=== PATIENT | female | born 1985 | race Caucasian/White ===

== ENCOUNTER 2021-09-12 09:19 | Emergency (ER) | payer MEDICAID, SELFPAY ==
[2021-09-12 09:32] VITALS: BP 114/78; PULSE 73; RESP 16; TEMP 36.3; O2SAT 97; BMI 28.3
--- NOTE | 2021-09-12 09:58 | ED_ITS ---
HPI - Nausea/Vomiting/Diarrhea General: Chief complaint: Abdominal Pain Stated complaint: abdominal pain / vomiting Time Seen by Provider: 09/12/21 09:26 Source: patient Mode of arrival: ambulatory Limitations: no limitations History of Present Illness: Patient is a 36-year-old female who presents to ED today along with her sister who is also being seen for identical symptoms. They are both being seen for nausea, vomiting, diarrhea, abdominal cramping. They state several members of their household have recently been ill with similar symptoms. She states illness lasted anywhere from 2 to 7 days. No fevers. She is not having any urinary complaints. No dizziness, lightheadedness, muscle fatigue/weakness/cramps. Patient denies hematemesis, hematochezia or melena. MD elicited complaint: nausea, vomiting, diarrhea and abdominal pain Onset (ago): day(s) Description of vomiting: watery Description of diarrhea: watery Associated nausea: Yes Associated abdominal pain: Yes Location of pain: Diffuse Pain consistency: intermittent Quality: cramping Exacerbating factors: eating Relieving factors: none Associated symtoms: Reports nausea; Denies chest pain, dizziness, dysuria, fatigue, headache(s) or malaise Review of Systems Const: Denies: fever(s), chills, body aches, fatigue or malaise Card: Denies: chest pain Resp: Denies: dyspnea GI: Reports: abdominal pain, nausea, vomiting, diarrhea and GI cramping; Denies: hematemesis, coffee ground emesis, pain on defecation, hematochezia, melena or white/light colored stool : Denies: flank pain, dysuria, hematuria or pelvic pain Musc: Denies: neck pain, back pain, extremity pain or joint pain Skin/Breast: Denies: rash Neuro: Denies: headache(s) or dizziness Physical Exam Const: COMMON NORMALS: no acute distress, patient oriented x3, no limitations and alert NUTRITIONAL APPEARANCE: overweight ORIENTATION/CONSCIOUSNESS: Yes awake, Yes oriented to person, Yes oriented to place and Yes oriented to time HENMT: COMMON NORMALS: normocephalic and atraumatic HEAD & SCALP: normocephalic and atraumatic Resp: COMMON NORMALS: normal respiratory effort and clear to auscultation bilaterally AUSCULTATION: clear to auscultation bilaterally Cardio: COMMON NORMALS: regular rate and regular rhythm RATE: regular rate RHYTHM: regular rhythm GI: COMMON NORMALS: Normal to inspection, nondistended, normoactive bowel sounds present, Soft to palpation, No hepatosplenomegaly present and no masses INSPECTION: Yes normal to inspection PALPATION: Yes Soft to palpation, Yes Tenderness to palpation present (GI) (upper abdomen/epigastric; non surgical exam), No Guarding due to palpation present (GI), No Rigid due to palpation and Yes No hepatosplenomegaly present : COMMON NORMALS: Yes no CVA tenderness BLADDER/KIDNEY EXAM: Yes no CVA tenderness Back/Pelvis: COMMON NORMALS: no CVA tenderness Extremity: COMMON NORMALS: normal to inspection GENERAL: Yes normal exam except as noted Neuro: SHANTEL COMA SCALE: document GCS findings [place] coma scale eye opening: Spontaneous [place] coma scale verbal response: Orientated [place] coma scale motor response: Obey commands Shantel coma scale total score: 15 COMMON NORMALS: patient oriented x3, moves all extremities, no focal motor deficits and no sensory deficits noted SENSORIUM/ORIENTATION: Yes alert, Yes oriented to person, Yes oriented to place and Yes oriented to time Skin: COMMON NORMALS: no rashes or lesions noted GENERAL SKIN EXAM: no rashes or lesions noted Course Vital Signs: Vital signs: Vital Signs Temperature 97.9 F 09/12/21 10:53 Pulse Rate 62 09/12/21 10:53 Respiratory Rate 16 09/12/21 10:53 Blood Pressure 124/81 09/12/21 10:53 Pulse Oximetry 98 09/12/21 10:53 MDM - Nausea/Vomiting/Diarrhea Medical Decision Making Patient clinically appears in no acute distress. Her vital signs are stable. Her blood work is unremarkable. She has not had any episodes of vomiting or diarrhea while here. As documented in HPI, her sister as well as several other members of her household have been sick with identical illness. Discussed how the vast majority of these are self-limited. Discussed rest and hydration at home. Will provide prescription for Zofran to help with her nausea. Lab Data : 09/12/21 10:05 09/12/21 10:05 Laboratory Results WBC 12.3 10^3/uL (4.0-10.0) H 09/12/21 10:05 RBC 5.05 10^6/uL (4.1-5.3) 09/12/21 10:05 Hgb 15.8 g/dL (11.5-15.3) H 09/12/21 10:05 Hct 46.7 % (37.0-47.0) 09/12/21 10:05 MCV 92.5 fl (81-99) 09/12/21 10:05 MCH 31.3 pg (28.0-34.0) 09/12/21 10:05 MCHC 33.8 g/dL (30.0-36.0) 09/12/21 10:05 RDW 12.1 % (12.1-15.1) 09/12/21 10:05 Plt Count 234 10^3/cmm (130-400) 09/12/21 10:05 MPV 10.5 fL (7.4-10.4) H 09/12/21 10:05 Neut % (Auto) 78.2 % 09/12/21 10:05 Lymph % (Auto) 13.0 % 09/12/21 10:05 [place] % (Auto) 7.5 % 09/12/21 10:05 Eos % (Auto) 0.4 % 09/12/21 10:05 Baso % (Auto) 0.7 % 09/12/21 10:05 Neut # (Auto) 9.58 10^3/uL (1.8-7.7) H 09/12/21 10:05 Lymph # (Auto) 1.6 10^3/uL (0.8-4.8) 09/12/21 10:05 [place] # (Auto) 0.9 10^3/uL (0.2-0.9) 09/12/21 10:05 Eos # (Auto) 0.1 10^3/uL (0.0-0.8) 09/12/21 10:05 Baso # (Auto) 0.1 10^3/uL (0.0-0.1) 09/12/21 10:05 Nucleated RBC % (auto) 0 % 09/12/21 10:05 Nucleated RBCs # 0.0 /100WBC 09/12/21 10:05 Sodium 137 mmol/L (136-145) 09/12/21 10:05 Potassium 3.5 mmol/L (3.5-5.1) 09/12/21 10:05 Chloride 99 mmol/L (98-107) 09/12/21 10:05 Carbon Dioxide 25 mmol/L (22-29) 09/12/21 10:05 Anion Gap 16.5 (5-19) 09/12/21 10:05 BUN 16 mg/dL (6-20) 09/12/21 10:05 Creatinine 0.6 mg/dL (0.5-0.9) 09/12/21 10:05 GFR Calculation 114.4 mL/min (90-130) 09/12/21 10:05 Glucose 97 mg/dL (65-115) 09/12/21 10:05 Calculated Osmolality 285 mOsm/kg (285-295) 09/12/21 10:05 Calcium 9.8 mg/dL (8.5-10.5) 09/12/21 10:05 Total Bilirubin 1.0 mg/dL (0.15-1.2) 09/12/21 10:05 AST 15 U/L (0-32) 09/12/21 10:05 ALT 24 U/L (0-33) 09/12/21 10:05 Alkaline Phosphatase 93 IU/L (35-105) 09/12/21 10:05 Total Protein 8.0 g/dL (6.6-8.7) 09/12/21 10:05 Albumin 4.5 g/dL (3.5-5.2) 09/12/21 10:05 Globulin 3.5 g/dL (1.3-4.6) 09/12/21 10:05 Lipase 32 U/L (13-60) 09/12/21 10:05 HCG, Qual Negative (Negative) 09/12/21 10:05 Urine Color Dark yellow (Yellow) 09/12/21 10:30 Urine Appearance Clear (CLEAR) 09/12/21 10:30 Urine pH 6.5 (5-7) 09/12/21 10:30 Ur Specific [place] 1.020 (1.005-1.030) 09/12/21 10:30 Urine Protein 1+ (Negative) H 09/12/21 10:30 Urine Glucose (UA) Norm (Normal) 09/12/21 10:30 Urine Ketones 2+ (Negative) H 09/12/21 10:30 Urine Blood 2+ (Negative) H 09/12/21 10:30 Urine Nitrate Negative (Negative) 09/12/21 10:30 Urine Bilirubin 1+ (Negative) H 09/12/21 10:30 Urine Urobilinogen 4 mg/dL (Negative) H 09/12/21 10:30 Ur Leukocyte Esterase Negative (Negative) 09/12/21 10:30 Urine RBC 0-4 /hpf (0-2) H 09/12/21 10:30 Urine WBC 0-4 /hpf (0-5) H 09/12/21 10:30 Ur Squamous Epith Cells 5-10 /hpf (0-5) H 09/12/21 10:30 Amorphous Sediment Not Reportable 09/12/21 10:30 Urine Bacteria Trace /hpf (NONE) 09/12/21 10:30 Urine Mucus 3+ /hpf 09/12/21 10:30 Discharge Plan Discharge Patient Disposition: Home Clinical Impression: Viral gastroenteritis Condition: Stable Prescriptions: New ondansetron 4 mg tablet,disintegrating 4 mg PO Q8H PRN (Reason: nausea and vomiting) Qty: 14 0RF Discharge Orders: Discharge ED (Routine); Ordered 09/12/21 Ordered By: Tiffanie Fletcher Patient Instructions: Gastroenteritis (ED) Coding Level of Care Code ED News Reporter for Chg Fwd Exam Comprehensive
[2021-09-12 10:17] LABS: Basophils # 0.1 10^3/uL (0.0-0.1); Basophils % 0.7 %; Eosinophils # 0.1 10^3/uL (0.0-0.8); Eosinophils % 0.4 %; Hematocrit 46.7 % (37.0-47.0); Hemoglobin 15.8 g/dL (11.5-15.3); Lymphocytes # 1.6 10^3/uL (0.8-4.8); Mean Corpuscular HGB Conc 33.8 g/dL (30.0-36.0); Mean Corpuscular Hemoglobin 31.3 pg (28.0-34.0); Mean Corpuscular Volume 92.5 fl (81-99); Mean Platelet Volume 10.5 fL (7.4-10.4); Monocytes # 0.9 10^3/uL (0.2-0.9); Monocytes % 7.5 %; Neutrophils # 9.58 10^3/uL (1.8-7.7); Neutrophils % 78.2 %; Nucleated Red Blood Cells % 0 %; Platelet Count 234 10^3/cmm (130-400); Red Blood Count 5.05 10^6/uL (4.1-5.3); Red Cell Distribution Width 12.1 % (12.1-15.1); White Blood Count 12.3 10^3/uL (4.0-10.0)
[2021-09-12] MEDS: ondansetron 4 MG Tablet PO (10:18)
[2021-09-12 10:36] LABS: Alanine Aminotransferase 24 U/L (0-33); Albumin Level 4.5 g/dL (3.5-5.2); Alkaline Phosphatase 93 IU/L (35-105); Anion Gap 16.5 (5-19); Aspartate Amino Transferase 15 U/L (0-32); Blood Urea Nitrogen 16 mg/dL (6-20); Calcium 9.8 mg/dL (8.5-10.5); Carbon Dioxide 25 mmol/L (22-29); Chloride 99 mmol/L (98-107); Creatinine Clr Calc Pharmacy 126.1191; Globulin 3.5 g/dL (1.3-4.6); Glomerular Filtration Rate 114.4 mL/min (90-130); Glucose 97 mg/dL (65-115); Lipase 32 U/L (13-60); Osmolality Calculated 285 mOsm/kg (285-295); Potassium 3.5 mmol/L (3.5-5.1); Sodium 137 mmol/L (136-145)
[2021-09-12 10:51] LABS: Add Urine Microscopic? YES; Bilirubin Urine 1+ (Negative); Blood Urine 2+ (Negative); Glucose Urine UA Norm (Normal); Ketones Urine 2+ (Negative); Leukocyte Esterase Urine Negative (Negative); Nitrate Urine Negative (Negative); Protein Urine 1+ (Negative); RBC Urine 0-4 /hpf (0-2); Urine Appearance Clear (CLEAR); Urine Color Dark Yellow (Yellow); Urobilinogen Urine 4 mg/dL (Negative); WBC Urine 0-4 /hpf (0-5); pH Urine 6.5 (5-7)
[2021-09-12 10:52] LABS: Bacteria Urine TRACE /hpf; Mucus Urine 3+ /hpf
[2021-09-12 10:52] LABS: HCG, Serum Qual Negative (Negative)
[2021-09-12 10:53] VITALS: BP 124/81; PULSE 62; RESP 16; TEMP 36.6; O2SAT 98
== END 2021-09-12 11:13 | disposition home or self-care (01) ==
PROVIDERS: Emergency Provider Physician Assistant
DX: A08.4 Viral intestinal infection, unspecified (principal)
CPT/HCPCS: 80053; 81001; 83690; 84703; 85025; 99283; Q0162

== ENCOUNTER → 2021-11-03 10:00 | Outpatient (BNVA) | payer MEDICAID, SELFPAY | PROVIDERS: Visit Provider Obstetrics & Gynecology | DX: Z34.90 Encounter for supervision of normal pregnancy, unspecified, unspecified trimester (principal) | CPT/HCPCS: 80307; 84315; 87077; 87086; 87184 ==

== ENCOUNTER → 2021-11-17 09:30 | Outpatient (BNVA) | payer MEDICAID, SELFPAY | PROVIDERS: Visit Provider Obstetrics & Gynecology | DX: O09.899 Supervision of other high risk pregnancies, unspecified trimester (principal); Z3A.00 Weeks of gestation of pregnancy not specified | CPT/HCPCS: 84315; 84443; 85025; 86592; 86762; 86803; 86850; 86900; 87340; 87491; 87591; 87624; 87661; 87806 ==

== ENCOUNTER → 2022-01-30 13:24 | Outpatient (BNVA) | payer MEDICAID, SELFPAY | PROVIDERS: Visit Provider Obstetrics & Gynecology | DX: O09.899 Supervision of other high risk pregnancies, unspecified trimester (principal); Z86.39 Personal history of other endocrine, nutritional and metabolic disease | CPT/HCPCS: 84315; 84443 ==

== ENCOUNTER → 2022-03-09 14:43 | Outpatient (BNVA) | payer MEDICAID, SELFPAY | PROVIDERS: Visit Provider Obstetrics & Gynecology | DX: O09.899 Supervision of other high risk pregnancies, unspecified trimester (principal); Z3A.00 Weeks of gestation of pregnancy not specified | CPT/HCPCS: 82950; 85025 ==

== ENCOUNTER → 2022-03-16 13:00 | Outpatient (BNVA) | payer MEDICAID, SELFPAY | PROVIDERS: Visit Provider Obstetrics & Gynecology | DX: O09.899 Supervision of other high risk pregnancies, unspecified trimester (principal); D64.9 Anemia, unspecified; Z3A.00 Weeks of gestation of pregnancy not specified | CPT/HCPCS: 82728; 82746; 83550; 84315 ==

== ENCOUNTER → 2022-04-10 13:00 | Outpatient (BNVA) | payer MEDICAID, SELFPAY | PROVIDERS: Visit Provider Obstetrics & Gynecology | DX: O09.899 Supervision of other high risk pregnancies, unspecified trimester (principal); Z3A.00 Weeks of gestation of pregnancy not specified | CPT/HCPCS: 84315; 84443; 85025 ==

== ENCOUNTER → 2022-05-01 13:50 | Outpatient (BNVA) | payer MEDICAID, SELFPAY | PROVIDERS: Visit Provider Obstetrics & Gynecology | DX: O09.899 Supervision of other high risk pregnancies, unspecified trimester (principal); Z3A.00 Weeks of gestation of pregnancy not specified | CPT/HCPCS: 84315; 87081; 87086 ==

== ENCOUNTER → 2022-05-08 15:00 | Outpatient (BNVA) | payer MEDICAID, SELFPAY | PROVIDERS: Visit Provider Obstetrics & Gynecology | DX: O09.899 Supervision of other high risk pregnancies, unspecified trimester (principal); Z3A.00 Weeks of gestation of pregnancy not specified | CPT/HCPCS: 84315; 87086 ==

== ENCOUNTER → 2022-05-15 13:00 | Outpatient (BNVA) | payer MEDICAID, SELFPAY | PROVIDERS: Visit Provider Obstetrics & Gynecology | DX: O09.899 Supervision of other high risk pregnancies, unspecified trimester (principal); Z3A.00 Weeks of gestation of pregnancy not specified | CPT/HCPCS: 84315; 84443; 87086 ==

== ENCOUNTER 2022-05-25 01:44 | Outpatient (CLI) | payer MEDICAID, SELFPAY ==
[2022-05-25 01:44] VITALS: BMI 26.4
[2022-05-25 01:54] VITALS: RESP 16
[2022-05-25 01:56] VITALS: BP 99/62; PULSE 75
[2022-05-25 03:21] VITALS: BP 87/54; PULSE 60
== END 2022-05-25 04:36 | disposition home or self-care (01) ==
LOC: OPOB 01:46 → OBGYN 01:46
PROVIDERS: Visit Provider Obstetrics & Gynecology
DX: O26.899 Other specified pregnancy related conditions, unspecified trimester (principal); Z3A.00 Weeks of gestation of pregnancy not specified; R10.9 Unspecified abdominal pain
CPT/HCPCS: 59025; 99211

== ENCOUNTER 2022-05-26 01:15 | Inpatient (IN) | payer MEDICAID, SELFPAY ==
[2022-05-26] VITALS (89 sets, daily range): BP systolic 85–129; BP diastolic 32–78; PULSE 50–114; RESP 14–18; TEMP 36.2–36.8; O2SAT 94–100; BMI 26.4
[2022-05-26] MEDS: lactated ringers 1,000 ML 999 ML IV ×3 (01:46→10:00)
[2022-05-26] MEDS: ondansetron 2 mg/ML SDV 2 mL 4 MG IVP ×4 (01:47→16:09)
[2022-05-26] MEDS: ampicillin 2,000 MG in sodium chloride 0.9% (plus) 50 ML 100 MG IV (01:47)
[2022-05-26 01:56] LABS: Basophils # 0.1 10^3/uL (0.0-0.1); Basophils % 0.5 %; Eosinophils # 0.1 10^3/uL (0.0-0.8); Eosinophils % 0.7 %; Hematocrit 39.6 % (37.0-47.0); Hemoglobin 13.6 g/dL (11.5-15.3); Lymphocytes # 1.6 10^3/uL (0.8-4.8); Mean Corpuscular HGB Conc 34.3 g/dL (30.0-36.0); Mean Corpuscular Hemoglobin 33.3 pg (28.0-34.0); Mean Corpuscular Volume 96.8 fl (81-99); Mean Platelet Volume 10.6 fL (7.4-10.4); Monocytes # 0.8 10^3/uL (0.2-0.9); Monocytes % 5.7 %; Neutrophils # 10.64 10^3/uL (1.8-7.7); Neutrophils % 80.6 %; Nucleated Red Blood Cells % 0 %; Platelet Count 185 10^3/cmm (130-400); Red Blood Count 4.09 10^6/uL (4.1-5.3); Red Cell Distribution Width 13.4 % (12.1-15.1); White Blood Count 13.2 10^3/uL (4.0-10.0)
--- NOTE | 2022-05-26 02:39 | ANES.PREANE2 ---
Pre-Anesthetic Assessment Height/Weight: Height 1.6 m Weight 67.585 kg Temp Pulse Resp BP Pulse Ox O2 Del Method 97.2 F L 69 18 104/61 97 05/26/22 01:50 05/26/22 02:35 05/26/22 01:54 05/26/22 02:34 05/26/22 02:35 05/26/22 02:16 Preop Diagnosis: Labor pain/ DIANA Was Beta Rhina taken within 24 hours: N/A Was Clonidine taken within 24 hours: N/A Social Tobacco and No alcohol Exam alert, oriented x 3, clear to auscultation bilaterally and regular rate & rhythm Airway Submandibular: within normal limits Cervical ROM: within normal limits Mallampati: Class II Dentition: full History/ROS No significant history except as noted and No significant complaints Pulmonary Asthma CV/HEM None reported None reported Hepatic None reported GI Gastroesophageal Reflux Disease Metabolic Thyroid Disease Musc/skel None reported Neuropsych None reported Anesthetic Plan ASA status: 2 Anesthesia: Anesthesia Evaluation and MAC Risk of > 500 ml blood loss (7ml/kg in children): No Medications/Allergies Home Medications Medication Instructions Recorded Confirmed Last Taken Type prenat.vits,bekah,ycv-[id number]-fbwow 1 tab PO DAILY #30 tabs 01/30/22 05/25/22 05/24/22 09:00 Rx ondansetron 4 mg disintegrating 4 mg PO Q6H #60 tabs 03/19/22 05/25/22 05/25/22 00:30 Rx tablet levothyroxine 200 mcg capsule 200 mcg PO DAILY #90 caps 04/14/22 05/25/22 05/24/22 09:00 Rx Allergies Allergy/AdvReac Type Severity Reaction Status Date / Time hydrocodone Allergy Intermediate vomiting Verified 05/22/22 12:57 Current Medications Generic Name Dose Route Start Last Admin Trade Name Freq PRN Reason Stop Dose Admin Lactated Ringer's 1,000 mls @ 999 mls/hr 05/26/22 01:34 05/26/22 01:46 Lactated Ringers IV 999 mls/hr .Q1H1M PRN Administration See label comments Ondansetron HCl 4 mg 05/26/22 01:31 05/26/22 01:47 Ondansetron 2 Mg/Ml Sdv 2 Ml IVP 4 mg Q4H PRN Administration NAUSEA AND VOMITING PFSH Anesthesia Surgical History H/O section H/O eye surgery Family History Grandmother Diabetes Paternal Father Diabetes Denies family history of Colon cancer Ovarian cancer Heart disease Hypercholesteremia Breast cancer Hypertension Uterine cancer Thyroid disease Female Reproductive History : 4 Data Anesthesia 05/26/22 01:35 Short CBC 05/26/22 Range/Units 01:35 WBC 13.2 H (4.0-10.0) 10^3/uL Hgb 13.6 (11.5-15.3) g/dL Hct 39.6 (37.0-47.0) % MCV 96.8 (81-99) fl Plt Count 185 (130-400) 10^3/cmm Neut % (Auto) 80.6 % Neut # (Auto) 10.64 H (1.8-7.7) 10^3/uL Cardiac Studies: No Data to Display
--- NOTE | 2022-05-26 02:41 | ANES.PROC ---
Anesthesia Procedures Procedure/Date: 05/26/22 Epidural: Time Out Performed: Yes Consents Signed: Procedure Consent Consent: requested by attending/covering physician, from patient, risks and benefits reviewed and patient agrees to proceed Lumbar Level: L2-L3 Epidural position: sitting Epidural procedure: sterile prep of area, 1% lidocaine to numb the area, neg for paresthesia, 1.5% xylocaine 1:200k epi (5cc), 0.2% Ropivacaine bolus ml (4cc and Fentanyl 100mcg), no systemic response, sterile dressing applied, L.U.D. no apparent complications and 0.2% Ropiavacaine @ mls/hr (13cc/hour)
[2022-05-26] MEDS: dextrose 5%-lactated ringers 1,000 ML 125 ML IV (03:49)
[2022-05-26 04:30] LABS: Amphetamines Screen Urine Negative (Negative); Barbiturates Screen Urine Negative (Negative); Benzodiazepines Screen Urine Negative (Negative); Cocaine Screen Urine Negative (Negative); Opiate Screen Urine Negative (Negative); PCP Screen Urine Negative (Negative); THC Screen Urine Positive (Negative)
[2022-05-26] MEDS: ampicillin 1,000 MG in sodium chloride 0.9% (plus) 50 ML 100 MG IV (05:21)
[2022-05-26] MEDS: metoclopramide 5 mg/mL SDV 2 mL 10 MG IV (07:19)
--- NOTE | 2022-05-26 07:47 | PM.OPHPUD ---
Labor & Delivery H&P Update Date of Procedure: May 26, 2022 Date H&P Performed: 05/22/22 H&P update information: I have reviewed H&P completed within last 30 days, I have examined patient prior to procedure and Changes to prior documentation as noted here (8/80%/-3/VX/IM) Admission Diagnosis: Preop diagnosis: Labor pain/
[2022-05-26] MEDS: citric acid-sodium citrate 30 mL UDC PO (10:38)
[2022-05-26] MEDS: famotidine 20 mg/2 mL INJ IVP (10:38)
--- NOTE | 2022-05-26 10:49 | ANES.PREANE2 ---
Pre-Anesthetic Assessment Height/Weight: Height 1.6 m Weight 67.585 kg Temp Pulse Resp BP Pulse Ox O2 Del Method 97.2 F L 54 L 18 99/62 100 05/26/22 01:50 05/26/22 10:36 05/26/22 01:54 05/26/22 10:36 05/26/22 05:10 05/26/22 02:16 Preop Diagnosis: Labor pain/ BTL Familial anesthetic complications: none Was Beta Rhina taken within 24 hours: N/A Was Clonidine taken within 24 hours: N/A Social Tobacco and No alcohol Exam alert, oriented x 3 and regular rate & rhythm Airway Submandibular: within normal limits Cervical ROM: within normal limits Mallampati: Class II Dentition: full Metabolic Thyroid Disease Anesthetic Plan ASA status: 2 Anesthesia: General Medications/Allergies Home Medications Medication Instructions Recorded Confirmed Last Taken Type prenat.vits,bekah,sxo-emdc-odocx 1 tab PO DAILY #30 tabs 01/30/22 05/25/22 05/24/22 09:00 Rx ondansetron 4 mg disintegrating 4 mg PO Q6H #60 tabs 03/19/22 05/25/22 05/25/22 00:30 Rx tablet levothyroxine 200 mcg capsule 200 mcg PO DAILY #90 caps 04/14/22 05/25/22 05/24/22 09:00 Rx Allergies Allergy/AdvReac Type Severity Reaction Status Date / Time hydrocodone Allergy Intermediate vomiting Verified 05/22/22 12:57 Current Medications Generic Name Dose Route Start Last Admin Trade Name Freq PRN Reason Stop Dose Admin Dextrose/Lactated Ringer's 1,000 mls @ 125 mls/hr 05/26/22 01:45 05/26/22 03:49 Dextrose 5%-Lactated Ringers IV 125 mls/hr .Q8H WILLIE Administration Ampicillin Sodium 1,000 mg/ 50 mls @ 100 mls/hr 05/26/22 05:45 05/26/22 05:51 Sodium Chloride IV Infused Q4H WILLIE Infusion Protocol Ropivacaine 200 mg in 100 mls @ 13 mls/hr 05/26/22 01:45 05/26/22 09:47 Naropin Premix EPIDURAL 13 mls/hr .Q7H42M WILLIE Administration Lactated Ringer's 1,000 mls @ 999 mls/hr 05/26/22 01:34 05/26/22 03:50 Lactated Ringers IV Infused .Q1H1M PRN Infusion See label comments Ondansetron HCl 4 mg 05/26/22 01:31 05/26/22 05:21 Ondansetron 2 Mg/Ml Sdv 2 Ml IVP 4 mg Q4H PRN Administration NAUSEA AND VOMITING PFSH Anesthesia Surgical History H/O section H/O eye surgery Family History Grandmother Diabetes Paternal Father Diabetes Denies family history of Colon cancer Ovarian cancer Heart disease Hypercholesteremia Breast cancer Hypertension Uterine cancer Thyroid disease Female Reproductive History : 4 Data Anesthesia 05/26/22 01:35 Short CBC 05/26/22 Range/Units 01:35 WBC 13.2 H (4.0-10.0) 10^3/uL Hgb 13.6 (11.5-15.3) g/dL Hct 39.6 (37.0-47.0) % MCV 96.8 (81-99) fl Plt Count 185 (130-400) 10^3/cmm Neut % (Auto) 80.6 % Neut # (Auto) 10.64 H (1.8-7.7) 10^3/uL Cardiac Studies: No Data to Display
--- NOTE | 2022-05-26 11:01 | PM.DELIVERY ---
Delivery Note: Date of delivery: May 26, 2022 Pre-delivery diagnoses: Term Procedure: Spontaneous vaginal delivery Delivering Physician: Phil Blackwell MD Estimated blood loss (mL): 300 Findings: 300 Delivery: The patient was noted to be complete and pushing, so was placed in the dorsal lithotomy position, prepped and draped in the usual sterile fashion for a vaginal delivery. Pt. Noted to have epidural anesthesia. At 0802 the patient delivered a viable female infant weighing 2795g with scores of 9 and 10 at one and five minutes, respectively. The vertex was delivered spontaneously over intact.. The patient was asked to push and the head delivered spontaneously in the DAVID position, over an intact perineum. A nuchal cord was checked and 1 noted, and delivered through around head as necessary. The anterior shoulder delivered easily and the posterior shoulder followed. The remainder of the was easily delivered and the oropharynx and nasopharynx was bulb suctioned. The infant was noted to have spontaneous cry and spontaneous movement of all four extremities. The cord was clamped x 2 and cut and noted to have 2 arteries and one vein. The infant was passed to the mother's abdomen where nursing personnel were in attendance. The placenta delivered intact spontaneously and the uterus was explored. 20 units of Pitocin was placed in the IV bag to firm the uterus. Examination of the cervix and vaginal vault did not reveal any lacerations. A vaginal pack was then placed. Examination of the perineum showed no lacerations. The vaginal pack was then removed. The patient tolerated this procedure well, and recovered in L&D with her infant in their LDR room. All sponge and needle counts were correct. History History History 4 Term 2 0 Miscarriages/Ectopic 1 Living Children 2 Coding Level of Care Code Acute Audiovisual Technician for Chg Shantal
--- NOTE | 2022-05-26 11:03 | P.PN_ITS ---
Subjective Subjective: Mrs. Sorenson 37-year-old female with an estimated gestational age of 39 weeks . Desires permanent sterilization Vitals/I&O/Wt Last Vital Signs Temp 97.2 F L 05/26/22 01:50 Pulse 58 L 05/26/22 10:51 Resp 18 05/26/22 01:54 BP 99/66 05/26/22 10:51 Pulse Ox 100 05/26/22 05:10 O2 Del Method 05/26/22 02:16 05/25/22 05/26/22 05/26/22 22:59 06:59 14:59 Intake Total 2099 / 2099 100 / 100 Output Total 100 / 100 Balance 1999 100 / 100 Weight last 48 hrs Weight 67.585 kg Physical Exam Narrative: GA; alert and oriented x 3 HEENT: normal Breasts: engorged Nipples - skin intact Lungs; clear to auscultation Heart: regular rhythm, no murmurs. Abd: Appropriately tender. BS+. Uterine fundus below umbilicus. No Fundal Tenderness. Perineum: normal lochia. Extremities: no edema, no cyanosis, no tenderness. Urinary Catheter Management: Layotn: Cath Placed During This Visit: yes Reason for Continuing Indwelling Catheter: Other Urinary Catheter Date of Insertion: 05/26/22 Urinary Catheter Time of Insertion: 02:57 Data 05/26/22 01:35 A&P Assessment and plan (1) Sterilization: 37-year-old female status post spontaneous vaginal delivery desire permanent sterilization requesting tubal ligation. The patient was counseled regarding all methods of contraception, risk and complications. She elected to continue to proceed with the tubal ligation as planned. partial salpingectomy is associated with lower failure rates than interval tubal occlusions done via laparoscopy. She was counseled regarding the procedure, alternative, risks and complications. Complications of tubal sterilization include problems like but not limited to anesthesia, hemorrhage, organ damage, and mortality. Although pregnancies after a sterilization procedure are rare, there is substantial risk that any post-sterilization could be ectopic. The overall failure rate is on the order of 0.5% in the first year but a study showed that sterilization failures vary by both age at sterilization and the method used. The study also found that the risks of accumulate over time, and that for women aged 18 to 27 years, failure rates can be as high as 5% with bipolar coagulation and the spring clip. The patient was informed of the risks and benefits of the procedure. Risks included but were not limited to bleeding, infection, and injury to internal organs. The patient was counseled on the risk of sterilization failure. The patient was informed that in the event a occurs the risk of ectopic is increased. The patient was counseled that bilateral tubal ligation is intended to be permanent and nonreversible. She was also counseled that there are nonpermanent forms of control available to her. The patient expressed understanding of the risks involved, all questions were answered, and the patient consented to the procedure. (2) Term delivered: Attestations Medical Necessity Statement*: In my professional opinion per admitting diagnosis Coding Level of Care Code Acute Telecommunications Sales Representative for g Alexad Diagnoses Sterilization Z30.2 Term delivered O80
[2022-05-26] MEDS: ceFAZolin 2,000 MG in sodium chloride 0.9% (plus) 50 ML 100 MG IV (11:25)
--- NOTE | 2022-05-26 11:52 | PM.OP ---
Operative Report Date of procedure: May 26, 2022 Pre-op diagnosis: Preop Diagnosis Labor pain/, delivered, desire permanent sterilization Post-op diagnosis: Same as above Procedure done: bilateral partial salpingectomy Surgeon: Phil Blackwell MD Estimated blood loss (mL): 5 IV fluids (mL): 400 Procedure: The patient was informed of the risks and benefits of the procedure. Risks included but were not limited to bleeding, infection, and injury to internal organs. The patient was counseled on the risk of sterilization failure. The patient was informed that in the event a occurs the risk of ectopic is increased. The patient was counseled that bilateral tubal ligation is intended to be permanent and nonreversible. She was also counseled that there are nonpermanent forms of control available to her. The patient expressed understanding of the risks involved, all questions were answered, and the patient consented to the procedure. After assuring informed consent. The patient was taken to the operating room and general anesthesia administered. Time-out procedure was performed. A small, transverse, infraumbilical skin incision was made with a scalpel, and the incision was carried down through the underlying fascia until the peritoneum was identified and entered. The left fallopian tube was identified, brought into the incision and grasped with a Joanne clamp. The tube was then followed out to the fimbria. An avascular midsection of the fallopian tube was grasped with a [place] clamp and brought into a knuckle. Using the [employer] Fine Fusion device the falopian tube was clamped, seal and cut. The specimen was sent to pathology. Excellent hemostasis was noted, and the tube was returned to the abdomen. The same procedure was performed on the opposite fallopian tube. The fascia was then closed with O-Vicryl in a single layer. The skin was closed with 3-O Monocryl in a subcuticular fashion. The patient tolerated the procedure well. Needle and sponge counts were correct times 3.
--- NOTE | 2022-05-26 12:42 | ANE.PACU2 ---
Inpatient post-anesthesia follow up: Airway intact: Yes Vital signs: Temperature 97.2 F Pulse Rate 58 Respiratory Rate 18 Blood Pressure 99/66 Pulse Oximetry 100 Oxygen Delivery Me thod Room Air Oxygen Flow Rate Fraction of Inspir ed Oxygen Hydration adequate: Yes Nausea and vomiting: No Pain level: 2 Mental status: Baseline
[2022-05-26] MEDS: ketorolac 30 mg/mL INJ IVP ×2 (13:49→22:13)
[2022-05-26] MEDS: promethazine 25 mg/mL SDV 1 mL IM (17:34)
[2022-05-26] MEDS: docusate sodium 100 mg Capsule PO (17:39)
[2022-05-26 23:56] LABS: Hematocrit 35.2 % (37.0-47.0); Hemoglobin 11.8 g/dL (11.5-15.3); Mean Corpuscular HGB Conc 33.5 g/dL (30.0-36.0); Mean Corpuscular Hemoglobin 33.2 pg (28.0-34.0); Mean Corpuscular Volume 99.2 fl (81-99); Mean Platelet Volume 11.7 fL (7.4-10.4); Platelet Count 162 10^3/cmm (130-400); Red Blood Count 3.55 10^6/uL (4.1-5.3); Red Cell Distribution Width 13.6 % (12.1-15.1)
[2022-05-27 04:20] VITALS: BP 103/68; PULSE 57; RESP 16; TEMP 36.8; O2SAT 99
[2022-05-27] MEDS: acetaminophen 325 mg Tablet 650 MG PO (06:41)
[2022-05-27] MEDS: ibuprofen 800 mg tablet PO (09:01)
[2022-05-27] MEDS: docusate sodium 100 mg Capsule PO (09:01)
[2022-05-27 10:00] VITALS: BP 104/62; PULSE 58; RESP 16; TEMP 36.7; O2SAT 99
--- NOTE | 2022-05-27 14:49 | PM.OBGYDC ---
Discharge Providers WET MILLING WHEEL OPERATOR Date of Admission: 05/26/22 01:15 Date of Discharge: 05/27/22 Attending Provider at Admission: Danya West MD Attending Provider at Discharge: Danya West MD Primary WET MILLING WHEEL OPERATOR: Dr. eWst Diagnoses at Discharge Discharge Diagnosis (1) Sterilization: Status: Acute (2) Term delivered: Status: Acute Reason for Visit Reason for Visit: contractions Brief History: Ms. Sorenson is a 37 year old established patient with an LMP of 08/13/2021 (uncertain), and an VONDA of 05/28/22, based on her 7 week sonogram, placing her at 39-5/7 weeks gestation. Came to labor and delivery in active labor. Progressed to have a spontaneous vaginal delivery without complications. She had signed the state required consent for permanent sterilization and a bilateral partial salpingectomy was performed without complication. Overnight observation was uneventful. Rating diet well. Ambulating without difficulty. She is afebrile and hemodynamically stable postoperative day 1. She was counseled regarding pelvic rest for 6 weeks (no sex, no tampons, no vaginal douches). Return to the emergency room if any fever, increased bleeding or pain. Hospital Course Hospital Course Mrs. Sorenson 37-year-old female G4, P4 Information Peripartum Data: Delivery Method: Vaginal Physical Exam Narrative: GA; alert and oriented x 3 HEENT: normal Breasts: engorged Nipples - skin intact Lungs; clear to auscultation Heart: regular rhythm, no murmurs. Abd: Appropriately tender. BS+. Uterine fundus below umbilicus. No Fundal Tenderness. Incision clean and dry, no redness, pain or edema. Perineum: normal lochia. Extremities: no edema, no cyanosis, no tenderness. Urinary Catheter Management: Layton: Cath Placed During This Visit: yes, but has since been removed by the nurse Reason for Continuing Indwelling Catheter: Not indwelling catheter Urinary Catheter Date of Insertion: 05/26/22 Urinary Catheter Time of Insertion: 02:57 Date Urinary Catheter Removed: 05/26/22 Time Urinary Catheter Discontinued: 07:30 History History History 4 Term 2 0 Miscarriages/Ectopic 1 Living Children 2 Discharge Data Studies Completed and Pending Pending at discharge Category Date Time Status Pathology: Surgical [PTH] Routine Pth 05/25/22 12:00 Ordered Laboratory Results WBC 17.0 10^3/uL (4.0-10.0) H 05/26/22 21:45 RBC 3.55 10^6/uL (4.1-5.3) L 05/26/22 21:45 Hgb 11.8 g/dL (11.5-15.3) 05/26/22 21:45 Hct 35.2 % (37.0-47.0) L 05/26/22 21:45 MCV 99.2 fl (81-99) H 05/26/22 21:45 MCH 33.2 pg (28.0-34.0) 05/26/22 21:45 MCHC 33.5 g/dL (30.0-36.0) 05/26/22 21:45 RDW 13.6 % (12.1-15.1) 05/26/22 21:45 Plt Count 162 10^3/cmm (130-400) 05/26/22 21:45 MPV 11.7 fL (7.4-10.4) H 05/26/22 21:45 Neut % (Auto) 80.6 % 05/26/22 01:35 Lymph % (Auto) 12.0 % 05/26/22 01:35 Marion % (Auto) 5.7 % 05/26/22 01:35 Eos % (Auto) 0.7 % 05/26/22 01:35 Baso % (Auto) 0.5 % 05/26/22 01:35 Neut # (Auto) 10.64 10^3/uL (1.8-7.7) H 05/26/22 01:35 Lymph # (Auto) 1.6 10^3/uL (0.8-4.8) 05/26/22 01:35 Marion # (Auto) 0.8 10^3/uL (0.2-0.9) 05/26/22 01:35 Eos # (Auto) 0.1 10^3/uL (0.0-0.8) 05/26/22 01:35 Baso # (Auto) 0.1 10^3/uL (0.0-0.1) 05/26/22 01:35 Nucleated RBC % (auto) 0 % 05/26/22 01:35 Nucleated RBCs # 0.0 /100WBC 05/26/22 01:35 Urine Opiates Screen Negative ng/mL (Negative) 05/26/22 03:00 Ur Barbiturates Screen Negative ng/mL (Negative) 05/26/22 03:00 Ur Phencyclidine Scrn Negative ng/mL (Negative) 05/26/22 03:00 Ur Amphetamines Screen Negative ng/mL (Negative) 05/26/22 03:00 U Benzodiazepines Scrn Negative ng/mL (Negative) 05/26/22 03:00 Urine Cocaine Screen Negative ng/mL (Negative) 05/26/22 03:00 U Marijuana (THC) Screen Positive ng/mL (Negative) H 05/26/22 03:00 Vitals Last Vital Signs Temp 98.3 F 05/27/22 04:20 Pulse 57 L 05/27/22 04:20 Resp 16 05/27/22 04:20 BP 103/68 05/27/22 04:20 Pulse Ox 99 05/27/22 04:20 O2 Del Method 05/27/22 04:20 Discharge Plan Discharge Patient Disposition: Home Condition: Stable Prescriptions: New acetaminophen 325 mg capsule 325 mg PO Q4H PRN (Reason: fever or pain) Qty: 60 0RF ibuprofen 800 mg tablet 800 mg PO TID PRN (Reason: pain) Qty: 60 0RF Continued prenat.vits,bekah,[id number] Tablet 1 tab PO DAILY Qty: 30 12RF ondansetron 4 mg tablet,disintegrating 4 mg PO Q6H Qty: 60 2RF levothyroxine 200 mcg capsule 200 mcg PO DAILY Qty: 90 3RF Discharge Orders: Discharge Order (Routine); Ordered 05/27/22 Ordered By: Phil Blackwell Referrals: Phil Blackwell MD [Physician] - 2 weeks Patient Instructions: Ibuprofen (By mouth), Depression (GEN), Perineal Care (GEN), Bleeding (GEN), Preeclampsia and Eclampsia After Delivery (GEN), Hemorrhage (GEN), OB Discharge Report, OB Food/Drug Interaction Guide, OB Care at Home, Opioid Safety, OB Home Care, OB Proud Parent Packet, OB Vaginal Deliveries, Abnormal Bleeding, Choosing Between Vaginal After () or Repeat... (GEN), Vaginal Delivery (GEN), Your Medora's Appearance (GEN), Caring for Your Baby (GEN), Female Sterilization, Salpingectomy (GEN), Tubal Ligation (GEN) Activity Restrictions/Additional Instructions: 1. Please call [facility] on next working day to make your post-operative appointment in 2 weeks. 2. Please stay home until you come back to the clinic on first post-operative check up. 3. Please follow instructions on your medications CAREFULLY. 4. If you have abdominal incision, do not cover it unless dressing is necessary because of drainage. OK to shower, but avoid bath. Leave steri-strips until they fall off. If they are still on one week after surgery, you may remove them. 5. If you had vaginal surgery or vaginal repair, Dr. Blackwell may instruct you to take SITZ bath. 6. Yellow, blood tinged odorous vaginal discharge is usually normal after hysterectomy or vaginal surgeries. 7. No sexual intercourse, tampons, or douches until you are completely released from the post-operative care. 8. Avoid constipation by eating right and maybe using some Metamucil or Milk of Magnesia. 9. All prescription refills are given during the working hours. Please do no wait till it runs out. Call the clinic at [phone] before your medication runs out. The clinic will get in touch with your doctor to prescribe medications if necessary. 10. Please remain within 40 mile radius from our hospital because emergencies do happen now and then during the post-operative period. 11. If you have stairs at home, take one step at a time slowly and minimize the number of trips. It helps to stay in one floor for the next few days. No lifting except what you can lift by one hand until you are released from the post-operative care. 12. Driving is discouraged until you are well healed. It may be 3-4 weeks before you feel strong enough to drive. You should be able to turn and look through the rear window without pain and you should be able to push the brake pedal very hard without pain before you drive. No fast rules, but SAFETY should be your primary concern. DO NOT drive if you are on sedating medications such as narcotics. 13. Call the clinic (during working hours) to make urgent appointment or go to the Emergency room, if any of the following occurs: i. Vaginal bleeding becomes heavy, more than a period. ii. Incision becomes red and sore, or drains pus. iii. Your temperature is over 100.4 or you have chill. iv. IV site becomes red and swollen (a little ``knot?? is usually OK) v. Persistent nausea and vomiting vi. Persistent constipation or diarrhea vii. Rash or allergic reaction to medications. Discharge Attestations WET MILLING WHEEL OPERATOR Time Spent in Discharge Care*: greater than 30 min Coding Level of Care Code Acute Cover Operator for Chg Fwd Diagnoses Sterilization Z30.2 Term delivered O80
[2022-05-27 15:49] VITALS: BP 112/74; PULSE 58; RESP 16; TEMP 36.8; O2SAT 99
== END 2022-05-27 16:00 | disposition home or self-care (01) | DRG 798 ==
PROVIDERS: Obstetrics & Gynecology; Admitting Provider Obstetrics & Gynecology; Visit Provider Obstetrics & Gynecology
PROC: 10E0XZZ Delivery of Products of Conception, External Approach (ICD-10-PCS; CPT 58605; principal; 2022-05-26 11:25)
DX: O34.219 Maternal care for unspecified type scar from previous cesarean delivery (principal); Z37.0 Single live birth; O99.334 Smoking (tobacco) complicating childbirth; F17.200 Nicotine dependence, unspecified, uncomplicated; O99.284 Endocrine, nutritional and metabolic diseases complicating childbirth; E03.9 Hypothyroidism, unspecified; Z30.2 Encounter for sterilization; Z3A.39 39 weeks gestation of pregnancy; Z86.59 Personal history of other mental and behavioral disorders
CPT/HCPCS: 36415; 51702; 59025; 59409; 80306; 85025; 85027; 88302; 96372; 99211; G0379; J0290; J0690; J1100; J1885; J2250; J2274; J2405; J2550; J2765; J2795; J3010; J3490; J7120; J7121

== ENCOUNTER 2022-11-09 17:08 | Emergency (ER) | payer MEDICAID, SELFPAY ==
[2022-11-09 17:12] VITALS: BP 109/63; PULSE 72; RESP 18; TEMP 36.6; O2SAT 100; BMI 24.7
--- NOTE | 2022-11-09 17:22 | XRR_ITS ---
PROCEDURE INFORMATION: Exam: XR Right Ankle Exam date and time: 11/09/2022 5:31 PM Age: 37 years old Clinical indication: Pain; Ankle; Right; Additional info: Fall ankle pain TECHNIQUE: Imaging protocol: Radiologic exam of the right ankle. Views: 3 or more views. COMPARISON: No relevant prior studies available. FINDINGS: Bones/joints: Osseous structures are intact. Negative for fracture. Joint spaces are preserved. Soft tissues: Normal. XR/XR ankle RT min 3V* [id number] IMPRESSION: No acute findings.
--- NOTE | 2022-11-09 17:22 | ED_ITS ---
HPI - Extremity Problem General: Chief complaint: Extremity Injury, Lower Stated complaint: possible broken ankle Time Seen by Provider: 11/09/22 17:21 History of Present Illness: 37-year-old female comes in today with complaints of pain to the right ankle. Patient reports slipping while ascending steps going into her house. Patient reports the steps were wet due to the rain. Incident occurred about 3:00 this afternoon. Patient appears nontoxic. Patient appears in mild to moderate pain. Obvious swelling is noted to the lateral ankle but no obvious dislocation or deformity is noted. Associated symptoms: Deny chest pain or fever(s) Review of Systems General: Denies: 10 or more systems reviewed and unremarkable except in HPI and below Const: Denies: fever(s) Card: Denies: chest pain Resp: Denies: dyspnea GI: Denies: nausea or vomiting : Denies: difficulty voiding Musc: Reports: extremity pain, extremity swelling, joint pain (Right ankle) and joint swelling (Right ankle) PFS ED PFSH: Medical History (Updated 11/09/22 @ 17:44 by ТАТЬЯНА Garcia) History of hypothyroidism Sterilization Surgical History (Updated 07/15/22 @ 19:36 by Danya West MD) H/O section H/O eye surgery History of delivery Family History Grandmother Diabetes Paternal Father Diabetes Denies family history of Colon cancer Ovarian cancer Heart disease Hypercholesteremia Breast cancer Hypertension Uterine cancer Thyroid disease Physical Exam Const: COMMON NORMALS: alert HENMT: COMMON NORMALS: normocephalic HEAD & SCALP: normocephalic Neck/C-Spine: COMMON NORMALS: full ROM Resp: COMMON NORMALS: normal respiratory effort and clear to auscultation bilaterally AUSCULTATION: clear to auscultation bilaterally Cardio: COMMON NORMALS: regular rate and regular rhythm RATE: regular rate RHYTHM: regular rhythm GI: AUSCULTATION: Yes normoactive bowel sounds Extremity: RIGHT LOWER EXTREMITY: Yes foot & digits (Lateral swelling and tenderness to the malleus of the right ankle) Right ankle: Yes inspection, Yes palpation and Yes ROM Neuro: SENSORIUM/ORIENTATION: Yes alert Skin: COMMON NORMALS: turgor normal GENERAL SKIN EXAM: turgor normal Course Vital Signs: Vital signs: Vital Signs Temperature 97.9 F 11/09/22 17:12 Pulse Rate 72 11/09/22 17:12 Respiratory Rate 18 11/09/22 17:12 Blood Pressure 109/63 11/09/22 17:12 Pulse Oximetry 100 11/09/22 17:12 Oxygen Delivery Me thod Room Air 11/09/22 17:12 MDM - Extremity (Nontraumatic) Medical Decision Making 37-year-old female comes in today with injury to the right ankle. On exam patient has some lateral swelling to the ankle, distal pulses are intact, normal sensation intact. Differential diagnosis includes fracture, sprain, dislocation. X-ray of the ankle demonstrated no acute fracture. Patient appears to have a sprain. Recommended acetaminophen and ibuprofen for pain. Did write for a few Tylenol threes to help with pain control. Otherwise recommended elevation and ice packs. Patient was placed in a elastic bandage and crutches. Discharge Plan Discharge Patient Disposition: Home Clinical Impression: Right ankle sprain Qualifiers: Encounter type: initial encounter Involved ligament of ankle: unspecified ligament Qualified Code(s): S93.401A - Sprain of unspecified ligament of right ankle, initial encounter Condition: Stable Prescriptions: New acetaminophen-codeine 300-30 mg tablet 1 tab PO Q6H PRN (Reason: pain (scale score 7-10)) Qty: 10 0RF ibuprofen 600 mg tablet 600 mg PO Q6H PRN (Reason: pain) Qty: 60 0RF No Action prenat.vits,bekah,[id number] Tablet 1 tab PO DAILY Qty: 30 12RF levothyroxine 200 mcg capsule 200 mcg PO DAILY Qty: 90 3RF Discharge Orders: Discharge ED (Routine); Ordered 11/09/22 Ordered By: Zeyad Ferrara Discharge Diet: Usual diet Discharge Activity: Increase activity as tolerated Patient Instructions: Ankle Sprain (ED), Opioid Safety Activity Restrictions/Additional Instructions: Use acetaminophen and ibuprofen to control pain. Use ice packs for further pain relief. Increase activity as tolerated. Use elastic bandage for swelling and discomfort. Follow-up with primary care in 1 week for recheck. Return to ED for new concerns. Coding Level of Care Code ED Sexual Abuse Counsellor for Julio Cesar Murguia
[2022-11-09] MEDS: acetaminophen-codeine 300-30mg Tablet 1 TAB PO (17:59)
[2022-11-09] MEDS: ibuprofen 200 mg Tablet 400 MG PO (17:59)
--- NOTE | 2022-11-17 11:44 | DCPLANNER ---
strategy manager called patient due to no primary care physician - no answer at this time.
== END 2022-11-09 18:19 | disposition home or self-care (01) ==
PROVIDERS: Emergency Provider Nurse Practitioner Family
DX: S93.401A Sprain of unspecified ligament of right ankle, initial encounter (principal); W10.9XXA Fall (on) (from) unspecified stairs and steps, initial encounter
CPT/HCPCS: 73610; 99283; E0114